=== PATIENT | female | born 1965 | race Caucasian/White ===

== ENCOUNTER 2019-10-09 13:59 | Inpatient (IN) ==
[2019-10-09] MEDS ORDERED: Ampicillin/Sulbactam 3,000 MG in 0.9 % Sodium Chloride 100 ML IVPB ONE (14:15)
[2019-10-09] MEDS ORDERED: Tetracaine 0.5% OPTH 80 DROP/4 ML BOTTLE LEFT EYE ONE (14:19)
[2019-10-09] MEDS ORDERED: Fluorescein Sodium STRIP OP ONE (14:20)
[2019-10-09] MEDS ORDERED: Vancomycin 0 MG in 0.9 % Sodium Chloride 250 ML IVPB SCH (15:00)
[2019-10-09 15:18] LABS: Basophils % 0.4 %; Eosinophils # 0.1 K/mcL (0.0-0.6); Eosinophils % 1.1 %; Hematocrit 47.6 % (35.3-44.9); Hemoglobin 15.6 g/dL (11.5-15.4); Immature Granulocytes % 0.4 % (0-4); Lymphocytes # 1.8 K/mcL (0.6-4.6); Lymphocytes % 21.7 %; Mean Corpuscular HGB Conc 32.8 g/dL (31.6-35.5); Mean Corpuscular Hemoglobin 27.5 pg (28.0-33.3); Mean Platelet Volume 10.3 fL (9.4-12.4); Monocytes # 0.3 K/mcL (0.0-1.3); Monocytes % 3.8 %; Platelet Count 260 K/mcL (140-400); Red Blood Count 5.67 M/mcL (3.82-4.97); Red Cell Distribution Width 14.4 % (11.5-14.5); Segmented Neutrophils % 72.6 %; White Blood Count 8.2 K/mcL (4.3-11.1)
[2019-10-09 15:46] LABS: C-Reactive Protein 5 mg/L (Less than 10)
[2019-10-09 16:20] LABS: Alanine Aminotransferase 24 Units/L (7-52); Albumin 4.6 g/dL (3.5-5.7); Albumin/Globulin Ratio 1.4 (1.1-2.2); Alkaline Phosphatase 77 Units/L (34-104); Aspartate Amino Transferase 16 Units/L (13-39); BUN/Creatinine Ratio 15 (6-26); Bilirubin,Total 0.4 mg/dL (0.3-1.0); Blood Urea Nitrogen 13 mg/dL (6-20); Calcium 10.1 mg/dL (8.6-10.3); Carbon Dioxide 24 mEq/L (23-29); Chloride 100 mEq/L (98-107); Globulin 3.2 g/dL (2.4-3.5); Glucose 127 mg/dL (70-105); Osmolality,Calculated 284 (280-300); Potassium 3.7 mEq/L (3.5-5.1); Sodium 136 mEq/L (136-145); Total Protein 7.8 g/dL (6.4-8.9); eGFR For African Americans > 60 (> 60); eGFR For Non-African Americans > 60 (> 60)
[2019-10-09] MEDS ORDERED: Isovue-370 500 ML BOTTLE IVP ONE (16:59)
[2019-10-09] MEDS ORDERED: Naloxone 0.4 MG/ML INJ IVP PRN ×2 (17:00→17:02)
[2019-10-09] MEDS ORDERED: Acetaminophen 325 MG TABLET PO PRN (17:02)
[2019-10-09] MEDS ORDERED: Ondansetron 4 MG/2 ML VIAL IVP PRN (17:02)
[2019-10-09] MEDS ORDERED: Dextrose Gel 15 GM/37.5 ML TUBE PO PRN ×2 (17:05)
[2019-10-09] MEDS ORDERED: *HR* Dextrose 50 % in Water (Syg) 50 ML SYRINGE IVP PRN (17:05)
[2019-10-09] MEDS ORDERED: D5% in Water 1,000 ML IVC PRN (17:05)
[2019-10-09] MEDS: *HR* Heparin 5,000 UNIT/ML VIAL SQ SCH (18:59)
[2019-10-09] MEDS: hydroCHLOROthiazide 25 MG TABLET PO SCH ×2 (19:00→19:05)
[2019-10-09] MEDS: Aspirin Enteric Coated 81 MG Tablet PO SCH (19:00)
[2019-10-09] MEDS: 0.9 % Sodium Chloride 1,000 ML IVC SCH (19:00)
[2019-10-09] MEDS: Erythromycin OPTH Oint BOTH EYES SCH (21:07)
[2019-10-09] MEDS: Piperacillin/Tazobactam 3.375 GM in 0.9 % Sodium Chloride Mini Bag 100 ML IVPB SCH (23:18)
[2019-10-09] MEDS: Ibuprofen 600 MG TABLET PO PRN (23:47)
[2019-10-10] MEDS: Levothyroxine 25 MCG TABLET PO SCH (05:29)
[2019-10-10] MEDS: *HR* Heparin 5,000 UNIT/ML VIAL SQ SCH ×2 (05:29→18:09)
[2019-10-10] MEDS: 0.9 % Sodium Chloride 1,000 ML IVC SCH (05:35)
[2019-10-10] MEDS ORDERED: Vancomycin 1,750 MG in 0.9 % Sodium Chloride 250 ML IVPB SCH (06:00)
[2019-10-10 06:02] LABS: Hematocrit 39.2 % (35.3-44.9); Mean Corpuscular HGB Conc 31.6 g/dL (31.6-35.5); Mean Corpuscular Hemoglobin 27.6 pg (28.0-33.3); Mean Corpuscular Volume 87.3 fL (83.0-100.0); Mean Platelet Volume 10.2 fL (9.4-12.4); Platelet Count 216 K/mcL (140-400); Red Blood Count 4.49 M/mcL (3.82-4.97); Red Cell Distribution Width 14.5 % (11.5-14.5); White Blood Count 6.7 K/mcL (4.3-11.1)
[2019-10-10 06:03] LABS: Hemoglobin 12.4 g/dL (11.5-15.4)
[2019-10-10 06:23] LABS: BUN/Creatinine Ratio 22 (6-26); Blood Urea Nitrogen 19 mg/dL (6-20); Calcium 8.2 mg/dL (8.6-10.3); Carbon Dioxide 26 mEq/L (23-29); Chloride 102 mEq/L (98-107); Glucose 153 mg/dL (70-105); Osmolality,Calculated 289 (280-300); Potassium 3.5 mEq/L (3.5-5.1); Sodium 137 mEq/L (136-145); eGFR For African Americans > 60 (> 60); eGFR For Non-African Americans > 60 (> 60)
[2019-10-10] MEDS: Ibuprofen 600 MG TABLET PO PRN ×2 (08:38→18:20)
[2019-10-10] MEDS: Insulin LISPRO 300 UNITS/3 ML VIAL SQ SCH ×3 (08:39→18:09)
[2019-10-10] MEDS: Erythromycin OPTH Oint BOTH EYES SCH ×3 (08:39→20:03)
[2019-10-10] MEDS: Piperacillin/Tazobactam 3.375 GM in 0.9 % Sodium Chloride Mini Bag 100 ML IVPB SCH ×3 (08:41→23:37)
[2019-10-10] MEDS: *HR* HYDROcodone/Acet 5/325 mg TABLET PO PRN ×2 (13:50→23:42)
[2019-10-10] MEDS: hydroCHLOROthiazide 25 MG TABLET PO SCH (18:12)
[2019-10-10] MEDS: Aspirin Enteric Coated 81 MG Tablet PO SCH (18:12)
[2019-10-11] MEDS: Levothyroxine 25 MCG TABLET PO SCH (06:30)
[2019-10-11] MEDS: *HR* Heparin 5,000 UNIT/ML VIAL SQ SCH (06:30)
[2019-10-11] MEDS: Piperacillin/Tazobactam 3.375 GM in 0.9 % Sodium Chloride Mini Bag 100 ML IVPB SCH (09:18)
[2019-10-11] MEDS: Insulin LISPRO 300 UNITS/3 ML VIAL SQ SCH ×2 (09:18→12:29)
[2019-10-11] MEDS ORDERED: Ibuprofen 600 MG TABLET PO PRN (09:32)
[2019-10-11 11:08] VITALS: BP 102/68
[2019-10-11] MEDS: Erythromycin OPTH Oint BOTH EYES SCH (12:10)
[2019-10-11] MEDS: *HR* HYDROcodone/Acet 5/325 mg TABLET PO PRN (13:06)
[2019-10-11] MEDS ORDERED: Aminoglycoside Consult 1 EACH MC ONE (14:42)
== END 2019-10-11 14:43 | disposition home or self-care (01) | DRG 603 ==
LOC: 3BNU 13:59 → EMEROOARM 13:59 → SUATTDRO 16:56 → 2ANU 17:10
PROVIDERS: ADMIT Internal Medicine; ATTEND Internal Medicine